=== PATIENT | male | born 1985 | race Caucasian/White ===

== ENCOUNTER 2019-09-13 09:58 | Emergency (ER) | payer OTHER, SELFPAY ==
[2019-09-13 10:04] VITALS: BP 135/72; PULSE 67; RESP 15; TEMP 36.7; O2SAT 98; BMI 25.8
--- NOTE | 2019-09-13 11:16 | ED.WOUNDLAC ---
HPI - Wound/Laceration General Chief Complaint: Wound/Laceration Stated Complaint: cut l hand pointer finger Time Seen by Provider: 09/13/19 10:00 Source: patient Mode of arrival: Ambulatory Limitations: no limitations History of Present Illness HPI narrative: Patient comes emergency department complaining of a laceration to his left index finger tip while laying some selina. He states that a blade went through the distal portion of his fingernail and through the tip. Patient states that he did not notice a flap of skin or tissue after the laceration occurred. He states this happened around 1999 last night. Patient states he came here because he was told that if his nail bed is involved, he should get the laceration checked out. Related Data Home Medications Medication Instructions Recorded Confirmed No Known Home Medications 08/31/18 08/31/18 Allergies Allergy/AdvReac Type Severity Reaction Status Date / Time Iodinated Contrast Media Allergy Verified 09/13/19 10:04 [Iodinated Contrast- Oral and IV Dye] Review of Systems Review of Systems ROS Unobtainable: All systems reviewed & are unremarkable except as noted in HPI and below Constitutional Constitutional: Denies chills, Denies fatigue, Denies fever(s), Denies frequent falls, Denies lethargy and Denies weakness Eyes Eyes: Denies change in vision, Denies eye discharge, Denies irritation and Denies loss of vision ENT Ears, Nose, Mouth, and Throat: Denies change in voice, Denies dizziness, Denies neck pain, Denies sore throat and Denies throat swelling Cardiovascular Cardiovascular: Denies chest pain, Denies irregular heart rhythm, Denies lightheadedness, Denies palpitations, Denies dyspnea, Denies dyspnea on exertion and Denies orthopnea Respiratory Respiratory: Denies cough, Denies dyspnea, Denies dyspnea on exertion and Denies wheezing Gastrointestinal Gastrointestinal: Denies abdominal pain, Denies change in bowel habits, Denies diarrhea, Denies nausea and Denies vomiting Genitourinary Genitourinary: Denies hematuria, Denies flank pain, Denies urinary incontinence and Denies urinary urgency Musculoskeletal Musculoskeletal: Denies back pain, Denies muscle weakness, Denies neck pain, Denies numbness and Denies tingling Integumentary/Breasts Skin/Breast: Denies pruritus, Denies erythema, Denies rash and Denies wounds Neurologic Neurologic: Denies behavioral changes, Denies confusion, Denies dizziness, Denies frequent falls, Denies loss of vision, Denies numbness, Denies tingling and Denies weakness Psychiatric Psychiatric: Denies anxiety, Denies behavioral changes, Denies confusion, Denies depression, Denies homicidal ideation and Denies suicidal ideation Endocrine Endocrine: Denies fatigue, Denies flushing and Denies palpitations Hematologic/Lymphatic Hematologic/Lymphatic: Denies easy bruising Allergic/Immunologic Allergic/Immunologic: Denies urticaria, Denies throat swelling and Denies wheezing Patient History Medical History Healthy adult (Acute) Surgical History No pertinent past surgical history (Acute) Social History Smoking Status: Never smoker Smoking Status: Never smoker Exam Initial Vital Signs Initial Vital Signs: Vital Signs Temperature 98.1 F 09/13/19 10:04 Pulse Rate 67 09/13/19 10:04 Respiratory Rate 15 09/13/19 10:04 Blood Pressure 135/72 09/13/19 10:04 Pulse Oximetry 98 09/13/19 10:04 Const General: cooperative and well developed Nutritional Appearance: well nourished Orientation: alert, awake, oriented x3 and not confused HENNJ Head: normocephalic and atraumatic Ears: external ears normal and TM's normal bilaterally Nose: external nose normal and No nasal discharge Face and sinus: sinuses nontender, face symmetric, no sinus tenderness and No dry mucous membranes Mouth: oral mucosae normal and moist mucous membranes Teeth and gingiva: dentition normal Throat: tonsils normal and uvula midline Eyes General: appearance normal, both eyes and all related structures Eyelids: eyelids normal Conjunctivae: conjunctivae normal Sclera: sclerae normal Pupils: PERRL EOM: EOM intact bilaterally Neck Neck: normal visual inspection, trachea midline, No lymphadenopathy, No midline deformity and No JVD Lymphatic: No lymphedema Chest Chest: normal inspection of the chest Resp Effort & Inspection: normal respiratory effort, able to speak in complete sentences, no respiratory distress and no use of accessory muscles Cardio Rate: regular rate Rhythm: regular rhythm Pulses: normal peripheral pulses Back/Spine/Pelvis Back: No CVA tenderness Cervical Spine: cervical ROM normal and No pain with cervical ROM Thoracic/Lumbar Spine: thoracic and lumbar spine normal to inspection Skin General: No jaundice and No petechiae Other: The patient has a 1 cm superficial laceration extending through the ulnar aspect of his left index finger tip. The distal most edge of the fingernail is lacerated with a less than 1 mm deep, superficial laceration of the underlying nail bed. An approximately 7 mm length of the nail is cut horizontally and slightly obliquely at the very end of the nail. No active bleeding noted. Neuro General: alert, oriented x3, gait normal and no focal motor deficits Speech: speech normal Extrem General: full ROM, no clubbing, cyanosis or edema, no pedal edema and no calf tenderness Psych Appearance: well kempt Mental Status: mental status grossly normal Attitude: cooperative Thought Content: normal and suicidality Judgment: judgment good Procedures Laceration Repair Laceration 1: Site: hand Side (If applicable): left Size (cm): 1 Description: linear Depth: simple, single layer Pre-repair: wound explored, irrigated extensively and deep structures intact Skin layer closed with: dermabond (With a single Steri-Strips) Course Course Course Narrative: The patient had a minor laceration with minimal involvement of the nail bed, and the involvement that was present involved only the very distal most aspect of the nail bed. As such, I did not feel that the depth or the position of the nail bed wound indicated the need for repair. I discussed with the patient that I could repair the finger tip laceration with either a couple of sutures or with Dermabond and a Steri-Strip. The patient opted for the latter. We discussed wound care and the need to avoid rubbing, scrubbing, or emergent until the wound has healed. We've discussed home management of symptoms, as well as the usual indications for return Vital Signs Vital signs: Vital Signs - 8 hr 09/13/19 10:04 Temperature 98.1 F Pulse Rate 67 Respiratory Rate 15 Blood Pressure 135/72 Pulse Oximetry 98 MDM - Wound/Laceration Medical Records Attestation: I reviewed the patient's medical records. Discharge Plan Departure Patient Disposition: Home Clinical Impression: Laceration Discharge Date/Time: 09/13/19 11:20 Instructions: DI for Laceration Repair Prescriptions: No Action No Known Home Medications RF: 0
== END 2019-09-13 11:20 | disposition home or self-care (01) ==
PROVIDERS: Emergency Provider Emergency Medicine
DX: S61.311A Laceration without foreign body of left index finger with damage to nail, initial encounter (principal); W26.8XXA Contact with other sharp object(s), not elsewhere classified, initial encounter
CPT/HCPCS: 99282

== ENCOUNTER → 2020-03-30 10:46 | Outpatient (CLI) | payer OTHER, SELFPAY ==
[2020-03-31 08:43] LABS: COVID19 Sendout Not Detected (Not Detect)
== END ==
PROVIDERS: Visit Provider Nurse Practitioner
DX: Z11.59 Encounter for screening for other viral diseases (principal)
CPT/HCPCS: 87635

== ENCOUNTER 2020-04-02 09:16 | Day surgery (SDC) | payer OTHER, SELFPAY ==
[2020-03-25 08:03] VITALS: BMI 26.5
[2020-04-02] VITALS (7 sets, daily range): BP systolic 103–143; BP diastolic 66–84; PULSE 70–88; RESP 10–20; TEMP 36.2–36.8; O2SAT 93–100; BMI 26.7
--- NOTE | 2020-04-02 | PATH_ITS ---
[facility] Accession Number: [id number] . 01 Material submitted: . spermatic cord - LEFT SPERMATIC CORD LIPOMA . 02 Diagnosis: Left Spermatic Cord Lipoma, Inguinal Hernia Repair: Benign adipose tissue, consistent with cord lipoma (6.0 x 1.7 x 0.6 cm). V 04/04/2020 1226 Local . 02 Electronically signed: . Bryanna Jennings MD, Pathologist NPI- [id number] . 01 Gross description: . Received in formalin and labeled with spermatic cord L lipoma, is one piece of green adipose tissue measuring 6.0 x 1.7 x 0.6 cm. The tissue is inked, serially sectioned and submitted in six school admissions representative sections in cassettes A1 and A2, with three slices per cassette. ([id number]) /V 04/03/2020 0954 Local . 02 Pathologist provided ICD-10: K40.90 . 02 CPT . 080668 Performed at: 01 [facility] [address] [facility], [place], [place] [id number] MD Omid Villafuerte MD Phone: [phone] Performed at: 02 [facility] [place] [address] [place], [place] [id number] MD Ayse Sarah MD Phone: [phone]
[2020-04-02] MEDS: LACTATED RINGERS 1,000 ML 100 ML IV (09:30)
--- NOTE | 2020-04-02 10:14 | PM.PREOP ---
Pre-operative Note COVID-19 COVID-19 status: Negative Result date/Date tested (Pos, Neg/Pending): 03/30/20 Interval Note History & Physical reviewed/Exam performed by Physician: Yes Changes to H&P: No
[2020-04-02] MEDS: CEFAZOLIN 2 GM/100 ML FROZ.PIGGY IV (10:25)
--- NOTE | 2020-04-02 11:00 | SUR.OPER ---
Supine on padded OR bed, head on pillow, arms padded and tucked at sides, legs uncrossed, safety belt at thigh, tape over blanket over lower legs .
[2020-04-02] MEDS: BUPIVACAINE 0.25% W/ EPI 30 ML VIAL 60 ML INJ (11:12)
--- NOTE | 2020-04-02 12:13 | P.OP_ITS ---
Operative Date/Time/Diagnoses Date of procedure: 04/02/20 Time of procedure: 12:13 Pre-op diagnosis: fat containing left inguinal hernia Post-op diagnosis: other (indirect left inguinal hernia defect with spermatic cord lipoma) Procedure & Clinicians Procedure: laparoscopic repair of left inguinal hernia with mesh, removal of spermatic cord lipoma Same procedure as scheduled: Yes Indications: left groin pain, inguinal hernia seen on US Surgeon: Anaya Louis Anesthesia Type: General Operative Notes Findings: indirect inguinal defect with spermatic cord lipoma Specimen(s): other (spermatic cord lipoma) Prosthetic devices, grafts, tissues, transplants, or devices: BARD 3D Max mesh, large Estimated Blood Loss (mL): 1 Blood products transfused: none Procedure in detail: The patient was brought into the operating room and placed supine on the OR table. Sequential compression devices were placed on both legs and turned on. Appropriate perioperative antibiotics were given prior to the start of surgery. General anesthesia was induced the patient was intubated. A Nichols catheter was placed sterilely in the bladder. The abdomen was prepped and draped in sterile fashion. Surgical time-out was conducted. Local anesthetic was injected under the skin just superior to the umbilicus and a 5 mm vertical incision was made at this site. The umbilical stalk was grasped with a Shailesh and elevated. A Veress needle was passed through the fascia into proper position. The position was tested with a saline drop test which was appropriate for intra-abdominal Veress needle placement. The abdomen was then insufflated in the usual fashion. Once insufflated to 15 mm Hg the Veress needle was removed and a 5 mm optical trocar was placed under direct vision using a 5 mm 30 degree scope. Once the camera was inside the abdomen I took a look around. There was no injury from port placement. Two additional ports were placed in a similar fashion in the right and left mid clavicular line at the level of the umbilicus, one handbreadth lateral to the umbilicus. The umbilical port was upsized to a 10mm port. Attention was turned to the pelvis, and both inguinal regions were evaluated. On the left side there were adhesions of the sigmoid colon overlying the inguinal region of the internal ring. On the right side there was no inguinal hernia defect seen. Beginning on the left side, I began taking down adhesions of the sigmoid colon to the abdominal wall in order to expose the region of the inguinal canal and the internal ring. Local anesthetic was then infiltrated into the abdominal wall using 0.25% Marcaine with epi, in the region of the expected peritoneal incision. Metzenbaum scissors attached to cautery were then used to incise the peritoneum transversely from the midline laterally to the ASIS, 10 cm superior to the inguinal hernia defect. The peritoneal flap was developed down to the area of the internal ring. Once the flap had been fully developed and the cord structures were completely exposed, moderate size indirec t inguinal hernia defect was seen with a spermatic cord lipoma stuck within it. The fat tissue was reduced out of the defect and dissected free from the abdominal wall, removed from the abdomen, and passed off the field. Once the defects were all evaluated, I found that there was only an indirect hernia in the left groin, and no direct or femoral hernias, I then placed a large Bard 3DMax mesh into the abdomen, through the 10 mm port and positioned it within the surgical defect covering the direct, indirect, and femoral space with 5 cm overlap in each direction. I then secured the mesh to the pubic tubercle in 2 locations using dissolvable surgical tacks. I then secured the mesh to the abdominal wall at its superior edge, far away from the triangle of doom and the triangle of pain. These tacks were placed avoiding the epigastric vessels as well. Once the mesh was secured in place I brought up the peritoneal flap. There was no clam shelling or bending of the mesh when the peritoneal flap was brought up. I then secured the peritoneum up to the abdominal wall using the same surgical tacker, with dissolvable tacks. There was no gapping of the peritoneal flap or exposed mesh. I then infiltrated the abdominal wall in the area of dissection with an additional 20 mL of 0.25% Marcaine with epi, for total of 60 mL for the case. At this point the umbilical port site was closed with 0 Vicryl suture in the fascia using a Darron-Igor suture Passer. Insufflation was then removed from the abdomen, and the umbilical port site was closed with 3-0 Vicryl in the subcutaneous layers, and 4 Monocryl in the skin. The other 2 port sites were closed with 4 Monocryl in the skin. Each port site was sealed with Dermabond. Local anesthetic was given at each of the port sites and in the fascia. This concluded the procedure. At this point the needle sponge and instrument counts were correct. Patient was awakened from anesthesia and extubated. The Nichols catheter was removed, and the testicles were brought down to ensure they were in proper position. The patient was transferred to the postanesthesia care unit in stable condition. Complications: none Post-operative Condition: stable Disposition: PACU
== END 2020-04-02 13:50 | disposition home or self-care (01) ==
PROVIDERS: PCP General Practice; Referring Provider General Practice; Visit Provider Surgery
PROC: 0YQ64ZZ Repair Left Inguinal Region, Percutaneous Endoscopic Approach (ICD-10-PCS; CPT 49650; principal; 2020-04-02 10:45)
DX: K40.90 Unilateral inguinal hernia, without obstruction or gangrene, not specified as recurrent (principal); D17.6 Benign lipomatous neoplasm of spermatic cord; K66.0 Peritoneal adhesions (postprocedural) (postinfection)
CPT/HCPCS: 49650; C1781; J0690; J1100; J1885; J2250; J2405; J2704; J3010